=== PATIENT | female | born 2000 | race Caucasian/White ===

== ENCOUNTER 2021-03-05 12:04 | Emergency (ER) | payer SELFPAY ==
[2021-03-05 13:07] LABS: CORONAVIRUS COVID-19 NAA NEGATIVE (NEGATIVE)
--- NOTE | 2021-03-05 14:04 | EDM.PDOC ---
Scribed by Betsy Hernandez 03/05/21 [id number] for [place] Wyman MD ED HPI GENERAL MEDICAL PROBLEM - General Chief Complaint: General Stated Complaint: COVID/INFLUENZA SYMPTOMS Time Seen by Provider: 03/05/21 13:14 Source of Information: Reports: Patient, RN, RN Notes Reviewed History Limitations: Reports: No Limitations - History of Present Illness INITIAL COMMENTS - FREE TEXT/NARRATIVE: Patient presents to ED by POV with complaint of fever, body aches, cough, and hot/cold flashes since this morning. Has been exposed to several co-workers who have influenza. Onset: Today Duration: Constant Location: Reports: Generalized Severity: Moderate Improves with: Reports: None Worsens with: Reports: None Associated Symptoms: Reports: No Other Symptoms Generalized Pain Score (Numeric/FACES): 5 - Related Data Allergies Allergy/AdvReac Type Severity Reaction Status Date / Time No Known Allergies Allergy Verified 03/05/21 12:30 Home Meds: Home Meds . [No Known Home Meds] 09/10/19 [History] Past Medical History HEENT History: Reports: None Cardiovascular History: Reports: None Respiratory History: Reports: Asthma Gastrointestinal History: Reports: None Genitourinary History: Reports: None BIGHT MAKER History: Reports: Spontaneous Musculoskeletal History: Reports: Other (See Below) Other Musculoskeletal History: SCOLIOSIS Neurological History: Reports: None Psychiatric History: Reports: Anxiety, Depression Endocrine/Metabolic History: Reports: None Hematologic History: Reports: None Immunologic History: Reports: None Oncologic (Cancer) History: Reports: None Dermatologic History: Reports: Eczema, Other (See Below) Other Dermatologic History: hx ringworm in the past - Infectious Disease History Infectious Disease History: Reports: None - Past Surgical History Head Surgeries/Procedures: Reports: None HEENT Surgical History: Reports: Adenoidectomy, Tonsillectomy Respiratory Surgical History: Reports: None Female Surgical History: Reports: D&C Musculoskeletal Surgical History: Reports: None Dermatological Surgical History: Reports: None Social & Family History - Family History Family Medical History: No Pertinent Family History - Tobacco Use Tobacco Use Status *Q: Never Tobacco User - Caffeine Use Caffeine Use: Reports: Coffee, Soda Caffeine Use Comment: daily - Recreational Drug Use Recreational Drug Use: No - Living Situation & Occupation Occupation: Employed ED ROS GENERAL - Review of Systems Review Of Systems: Comprehensive ROS is negative, except as noted in HPI. ED EXAM, GENERAL - Physical Exam Exam: See Below Exam Limited By: No Limitations General Appearance: Alert, WD/WN, No Apparent Distress, Obese Ears: Normal External Exam, Normal Canal, Hearing Grossly Normal, Normal TMs Nose: Nasal Drainage (clear) Throat/Mouth: Normal Inspection, Normal Lips, Normal Teeth, Normal Gums, Normal Oropharynx, Normal Voice, No Airway Compromise Head: Atraumatic, Normocephalic Neck: Normal Inspection, Supple, Non-Tender, Full Range of Motion. No: Lymphadenopathy (L), Lymphadenopathy (R) Respiratory/Chest: No Respiratory Distress, Lungs Clear, Normal Breath Sounds, No Accessory Muscle Use, Chest Non-Tender, Other (dry cough) Cardiovascular: Regular Rate, Rhythm Back Exam: Normal Inspection Extremities: Normal Inspection Neurological: Alert, Oriented, No Motor/Sensory Deficits Course - Vital Signs Last Recorded V/S: Last Vital Signs Temp 99.8 F 03/05/21 12:25 Pulse 80 03/05/21 12:25 Resp 18 03/05/21 12:25 BP 118/71 03/05/21 12:25 Pulse Ox 98 03/05/21 12:25 - Orders/Labs/Meds Labs: Laboratory Tests 03/05/21 Range/Units 12:07 Influenza Type A RNA Negative (NEGATIVE) Influenza Type B RNA Negative (NEGATIVE) SARS-CoV-2 RNA (POLLO) Negative (NEGATIVE) Departure - Departure Time of Disposition: 14:02 Disposition: Home, Self-Care 01 Condition: Good Clinical Impression: Acute viral syndrome, Exposure to influenza - Discharge Information *PRESCRIPTION DRUG MONITORING PROGRAM REVIEWED*: Not Applicable *COPY OF PRESCRIPTION DRUG MONITORING REPORT IN PATIENT PIETER: Not Applicable Instructions: Viral Illness, Adult, Influenza, Adult, [id number] Forms: ED Department Discharge Additional Instructions: Use Tylenol (Acetaminophen) and/or Ibuprofen (Motrin/Advil) as needed for fevers or body aches. Follow directions on label for dosing and precautions. Drink plenty of water, Pedialyte, or Gatorade. Follow up in clinic or return to ER if you develop any difficulty breathing. Sepsis Event Note (ED) - Evaluation Sepsis Screening Result: No Definite Risk - Focused Exam Vital Signs: Vital Signs Temp Pulse Resp BP Pulse Ox 03/05/21 12:25 99.8 F 80 18 118/71 98 I have read and agree with the documentation that has been completed regarding this visit. By signing this record, I attest that the documentation was completed in my physical presence and is an accurate record of the encounter.
== END 2021-03-05 14:09 | disposition home or self-care (01) ==
LOC: DL.ED 12:04
DX: B34.9 Viral infection, unspecified (principal); Z20.822 Contact with and (suspected) exposure to COVID-19
CPT/HCPCS: 0240U; 99283

== ENCOUNTER 2021-04-02 18:31 | Emergency (ER) | payer SELFPAY ==
[2021-04-02 19:43] LABS: CORONAVIRUS COVID-19 NAA POSITIVE (NEGATIVE)
== END 2021-04-02 20:01 | disposition home or self-care (01) ==
LOC: DL.ED 18:31
DX: U07.1 COVID-19 (principal)
CPT/HCPCS: 0240U; 99284

== ENCOUNTER 2021-04-29 22:32 | Emergency (ER) | payer SELFPAY ==
[2021-04-30 00:21] LABS: ANION GAP 11.9 mEq/L (7-13); CHLORIDE,CL 107 mmol/L (98-107); SODIUM,NA 144 mmol/L (136-145)
== END 2021-04-30 01:04 | disposition home or self-care (01) ==
LOC: DL.ED 22:32
DX: R00.2 Palpitations (principal)
CPT/HCPCS: 36415; 80053; 84443; 85025; 93005; 99285-25

== ENCOUNTER 2022-05-18 22:11 | Emergency (ER) | payer BC, OTHER ==
[2022-05-18] MEDS ORDERED: Acetaminophen 325 MG Tab PO ONE (22:36)
[2022-05-18] MEDS ORDERED: Ibuprofen 600 MG Tab PO ONE (22:36)
== END 2022-05-19 00:08 | disposition home or self-care (01) ==
LOC: DL.ED 22:11
DX: S39.92XA Unspecified injury of lower back, initial encounter (principal); Z86.16 Personal history of COVID-19; W18.40XA Slipping, tripping and stumbling without falling, unspecified, initial encounter
CPT/HCPCS: 72220; 81025; 99283; A9270; 99282